=== PATIENT | male | born 1945 | race Caucasian/White ===

== ENCOUNTER 2016-11-04 00:48 | Observation (INO) | payer MEDICARE, BC ==
[2016-11-04 01:20] LABS: Absolute Neutrophil Count 2.3 /mm3 (0.0-28.0); Hematocrit 35.8 % (42.0-52.0); Hemoglobin 12.7 gm/dL (13.5-18.0); Mean Cell Volume 87.3 fl (78-100); Mean Corpuscular Hgb Conc 35.5 g/dl (32-36); Mean Platelet Volume 8.8 fl (6.0-9.5); Platelet Count 169 K/mm3 (150-450); Red Cell Distribution Width 15.2 % (11.5-14.0)
--- NOTE | 2016-11-04 01:23 | ERNOTE ---
Medical Problem HPI - General Chief Complaint: Fever Time Seen by Provider: 11/04/16 01:10 Source: patient Exam Limitations: no limitations - Immun/Allergies/Home Medications Immunizations: IMMUNIZATION HX Immunizations Up to Date Yes Allergies/Adverse Reactions: Allergies No Known Drug Allergies Allergy (Verified 11/04/16 00:57) Home Medications: HOME MEDICATIONS Capecitabine [Xeloda] 150 mg PO BID 11/04/16 [Last Taken Unknown] Capecitabine [Xeloda] 500 mg PO BID 11/04/16 [Last Taken Unknown] Dexamethasone [Decadron] 8 mg PO DAILY 11/04/16 [Last Taken Unknown] Loperamide HCl [Imodium A-D] 1 - 2 tab PO QID PRN 11/04/16 [Last Taken Unknown] Omeprazole 20 mg PO DAILY 11/04/16 [Last Taken Unknown] Ondansetron [Zofran Odt] 8 mg PO Q8H PRN 11/04/16 [Last Taken Unknown] Prochlorperazine Maleate [Compazine] 10 mg PO QID PRN 11/04/16 [Last Taken Unknown] Simethicone [Gas Relief] 160 mg PO QID PRN 11/04/16 [Last Taken Unknown] Zinc Oxide 1 appl TP PRN PRN 11/04/16 [Last Taken Unknown] - History of Present History Narrative: pt has rectal cancer and is receiving chemotherapy. his last bout of chemo ended four days ago. yesterday he started having diarrhea and he started having fever up to 101.9 tonight. He has taken nothing for fever today Review of Systems - Review of Systems Constitutional: Present: weakness EYE: Present: no symptoms reported ENT: Present: no symptoms reported Respiratory: Present: no symptoms reported Cardiology: Present: no symptoms reported Gastrointestinal/Abdominal: Present: See HPI Genitourinary: Present: no symptoms reported Musculoskeletal: Present: no symptoms reported - Patient's Past Medical History Patient History - Medical: No pertinent hx Patient History - Cardiac/Respiratory: No pertinent hx Patient History - Cancer: Rectal Patient History - Surgical Procedures: No surgical history Patient History - Other: None - Social History Living Situations: home Psych History: No pertinent hx Smoking Status: Former smoker Alcohol Use: none Drug Use: none - Immunizations Immunizations Up to Date: Yes Physical Exam - Physical Exam General Appearance: Present: wd/wn, alert, no apparent distress Ears, Nose, Throat: Present: normal ENT inspection Neck: Present: normal inspection Respiratory: Present: no respiratory distress, normal breath sounds, chest nontender, lungs clear Cardiovascular/Chest: Present: regular rate, rhythm, no murmur, normal peripheral pulses Gastrointestinal/Abdominal: Present: normal bowel sounds, nondistended, other - minimal epigastric and generalized tenderness upon deep palpation no rebound noted belly is soft Extremity Exam: Present: normal inspection, normal range of motion ED Progress - Results and Orders Patient's Lab Results:: I have reviewed the patient's lab results. - Vital Signs Patient's Vital Signs:: I have reviewed the patient's vital signs. Vital Signs: Vital Signs 11/04/16 00:53 Temperature 39.1 C H Pulse Rate 123 H Respiratory 18 Rate Blood Pressure 131/62 O2 Sat by Pulse 95 Oximetry - Progress/Reassessment Chief Complaint: Fever Plan - Plan Plan: This patient is 4 days status post chemotherapy for rectal cancer. First time he had chemotherapy for rectal cancer he experienced diarrhea and hypokalemia this was on September. He was admitted for IV hydration and monitoring and attempt at controlling his diarrhea. Today the patient presents with fever and diarrhea. His white count is 4.0. His lactate is negative. I have called at the [facility] oncology department and she suggested admission for IV hydration and attempts to control the diarrhea with replacement of the potassium. Following the suggestions I contacted our hospitalist Millie, and she accepted the patient to the observation MedSurg unit for IV hydration and monitoring. Departure - Departure Clinical Impression: Hypokalemia Diarrhea Qualifiers: Diarrhea type: unspecified type Qualified Code(s): R19.7 - Diarrhea, unspecified Disposition: [facility] Condition: Good Referrals: Eduard Winter MD [Primary Care Provider] -
[2016-11-04 01:27] LABS: Total Cells Counted 100
[2016-11-04 01:39] LABS: BUN/Creatinine Ratio 18.4 (9.0-21.6); Potassium 3.2 mmol/L (3.4-4.6)
[2016-11-04 01:40] LABS: Albumin * 2.9 gm/dl (3.4-5.0); Anion Gap 17.6 mmol/L (6.8-13.8); Bilirubin, Total 1.1 mg/dL (0.0-1.1); Ca. Corrected For Albumin 8.5 mg/dL (8.4-10.2); Calcium * 7.9 mg/dL (7.9-10.9); Carbon Dioxide 21.6 mmol/L (24-32.6); Total Protein 6.2 gm/dL (6.2-8.2)
[2016-11-04 01:46] LABS: Band 12 % (0-2.0); Lymphocyte 21 % (20-51); Monocyte 19 % (0-9); Neutrophil 48 % (42-75); Neutrophil # 1.9 K/mm3 (1.3-6.0); Platelet Estimate Normal (NORMAL)
[2016-11-04 01:47] LABS: Microcytosis 1+
[2016-11-04] MEDS ORDERED: ACETAMINOPHEN 325 MG TABLET PO ONE (01:54)
[2016-11-04] MEDS ORDERED: POTASSIUM CHLORIDE 20 MEQ in NORMAL SALINE 1,000 ML IV ONE (01:56)
[2016-11-04] MEDS ORDERED: ACETAMINOPHEN 325 MG TABLET ONE (02:00)
[2016-11-04] MEDS: POTASSIUM CHLORIDE 20 MEQ in NORMAL SALINE 1,000 ML IV SCH ×4 (02:29→22:43)
[2016-11-04] MEDS ORDERED: POTASSIUM CHLORIDE 40 MEQ/15 ML BTL PO ONE (03:43)
[2016-11-04] MEDS ORDERED: NORMAL SALINE 1,000 ML IV PRN (03:44)
--- NOTE | 2016-11-04 04:20 | HP ---
Chief Complaint - Chief Complaint Date of Service: 11/04/16 Time of Service: 03:45 Chief Complaint: " Diarrhea, Abdominal pain". Source of HPI- Pt; reliable, ERP report, pts EMR. History of Present Illness: Mr. Horton is a 71-yr-old WM pt of Dr. Eduard Winter with a PMH of: Chronic Reflux esophagitis, Hiatal Hernia & Osteoathrosis. Pt is a newly diagnosed Rectal Adenocarcinoma with mets to the LT iliac crest & femoral neck which was discovered during a colonoscopy work-up for hematochezia in August 06, 2016. He states that he just finished the second cycle of chemotherapy on October at the [facility]. Since Friday, he has had diarrhea which has been worsening and he has had up to 9-10 liquid stools per day. Then tonight he developed a fever of 102 and therefore he chose to come to the ED. He denies n/v SOB & Coughing. At the ED, Labwork was mostly unremarkable except for K level of 3.2. The CXR did not have any acute findings. ERP contacted [facility] about pt's condition and he recommended pt's admission to the hospital for IVF hydration and control of diarrhea. - Patient's Past Medical History Patient History - Medical: No pertinent hx, Other - Chronic Reflux esophagitis, Hiatal Hernia & Osteoathrosis Patient History - Cardiac/Respiratory: No pertinent hx Patient History - Cancer: Rectal Patient History - Surgical Procedures: No surgical history Patient History - Other: None - Family History Father Family History - Medical: , Other - suicide at 59 r. Mother Family History - Medical: , No pertinent hx - Social History Living Situations: home Psych History: No pertinent hx Smoking Status: Former smoker Alcohol Use: none Drug Use: none - Immunizations Immunizations Up to Date: Yes Review Of Systems (GEN) - Review of Systems Generalized/Overall Review: Present: Weakness, Chills, Fever, Malaise, Fatigue, Weight loss EENTM: Absent: Eye Pain, Blurred Vision Respiratory: Absent: Cough, Shortness of Breath Cardiac: Absent: Chest Pain, Edema, Palpitations Abdominal: Present: Abdominal Pain, Diarrhea. Absent: Nausea, Vomiting, Hematemesis Genitourinary: Absent: Burning, Itching, Urgency, Frequency Musculoskeletal: Absent: Joint Pain, Back Pain Neurological: Present: Depressed, Weakness. Absent: Headache, Anxiety Skin: Present: Dryness. Absent: Lesions, Bruising Endocrine: Present: Intolerance to Cold. Absent: Intolerance to Heat, Increased Hunger, Flushing Misc: All systems neg except as marked Allergies/Adverse Reactions: Allergies Allergy/AdvReac Type Severity Reaction Status Date / Time No Known Drug Allergies Allergy Verified 11/04/16 00:57 Home Medications: HOME MEDICATIONS Loperamide HCl [Imodium A-D] 1 - 2 tab PO QID PRN 11/04/16 [Last Taken 11/03/16] Omeprazole 20 mg PO DAILY 11/04/16 [Last Taken 11/03/16] Ondansetron [Zofran Odt] 8 mg PO Q8H PRN 11/04/16 [Last Taken 11/03/16] Prochlorperazine Maleate [Compazine] 10 mg PO QID PRN 11/04/16 [Last Taken 11/03] Simethicone [Gas Relief] 160 mg PO QID PRN 11/04/16 [Last Taken 11/03/16] Exam - Exam Vital Signs: Vital Signs - Last Taken Temp 37.9 C H 11/04/16 03:15 Pulse 101 H 11/04/16 02:32 Resp 18 11/04/16 02:32 BP 116/64 11/04/16 02:32 Pulse Ox 96 11/04/16 02:32 Constitutional: Present: Alert, Oriented x3, Cooperative, No distress ENT Exam: Present: normal ENT inspection, hard of hearing, dry mucous membranes Eye Exam: bilateral eye: normal inspection, PERRL Neck: Present: non-tender, full range of motion, supple Back Exam: Present: normal inspection, no CVA tenderness Breasts: Present: Exam deferred Respiratory: Present: lungs clear, no accessory muscle use, No wheezing Cardiovascular/Chest: Present: normal peripheral pulses, regular rate, rhythm, no chest tenderness, no murmur Abdomen: Present: Normal bowel sounds, soft, tender - RLQ & LLQ /Rectal: Present: Exam deferred Extremity: Present: non-tender, normal inspection, no pedal edema Skin Exam: Present: warm/dry, no cyanosis Neurologic: Present: no motor/sensory deficits, alert, oriented x 3 Appearance: Present: appropriate appearance, appropriate insight Eye contact: Present: cooperative, good eye contact, normal speech Thoughts: Present: normal thought pattern, no apparent hallucination Diagnostic Studies: Laboratory Results WBC 4.0 K/mm3 (4.0-10.5) 11/04/16 01:10 RBC 4.10 M/mm3 (4.7-6.0) L 11/04/16 01:10 Hgb 12.7 gm/dL (13.5-18.0) L 11/04/16 01:10 Hct 35.8 % (42.0-52.0) L 11/04/16 01:10 MCV 87.3 fl (78-100) 11/04/16 01:10 MCH 31.0 pg (27-31) 11/04/16 01:10 MCHC 35.5 g/dl (32-36) 11/04/16 01:10 RDW 15.2 % (11.5-14.0) H 11/04/16 01:10 Plt Count 169 K/mm3 (150-450) 11/04/16 01:10 MPV 8.8 fl (6.0-9.5) 11/04/16 01:10 Neutrophils % (Manual) 48 % (42-75) 11/04/16 01:10 Band Neuts % (Manual) 12 % (0-2.0) H 11/04/16 01:10 Lymphocytes % (Manual) 21 % (20-51) 11/04/16 01:10 Monocytes % (Manual) 19 % (0-9) H 11/04/16 01:10 Neutrophils # (Manual) 1.9 K/mm3 (1.3-6.0) 11/04/16 01:10 Absolute Neutrophils 2.3 /mm3 (0.0-28.0) 11/04/16 01:10 Lymphocytes # (Manual) 0.8 k/mm3 (1.5-3.5) L 11/04/16 01:10 Monocytes # (Manual) 0.8 k/mm3 (0.0-1.0) 11/04/16 01:10 Platelet Estimate Normal (NORMAL) 11/04/16 01:10 Microcytosis 1+ 11/04/16 01:10 Sodium 137 mmol/L (132-142) 11/04/16 01:10 Plasma Sodium 137 mmol/L (130-142) 11/04/16 01:10 Potassium 3.2 mmol/L (3.4-4.6) L D 11/04/16 01:10 Chloride 101 mmol/L (97-106) 11/04/16 01:10 Carbon Dioxide 21.6 mmol/L (24-32.6) L 11/04/16 01:10 Anion Gap 17.6 mmol/L (6.8-13.8) H 11/04/16 01:10 BUN 19 mg/dL (6-23) 11/04/16 01:10 Creatinine 1.03 mg/dL (0.4-1.4) 11/04/16 01:10 Est GFR (Non-Af Amer) 76 mL/min (60-130) 11/04/16 01:10 BUN/Creatinine Ratio 18.4 (9.0-21.6) 11/04/16 01:10 Random Glucose 112 mg/dL (70-110) H 11/04/16 01:10 Lactic Acid, Venous 1.3 mmol/L (0.4-1.9) 11/04/16 01:10 Calcium 7.9 mg/dL (7.9-10.9) 11/04/16 01:10 Calcium Adj for Albumin 8.5 mg/dL (8.4-10.2) 11/04/16 01:10 Total Bilirubin 1.1 mg/dL (0.0-1.1) 11/04/16 01:10 AST 34 U/L (0-48) 11/04/16 01:10 ALT 50 U/L (19-67) 11/04/16 01:10 Alkaline Phosphatase 101 U/L (50-170) 11/04/16 01:10 C-Reactive Prot, Quant 4.4 mg/dL (0.0-0.9) H 11/04/16 01:10 Total Protein 6.2 gm/dL (6.2-8.2) 11/04/16 01:10 Albumin 2.9 gm/dl (3.4-5.0) L 11/04/16 01:10 Procalcitonin 0.30 ng/mL (0.05-0.50) 11/04/16 01:10 Assessment/Plan - Assessment/Plan (1) Diarrhea Assessment: Pt reports having 9-10 stool per day since Friday following chemotherapy on 10/31. He has a likelihood of having C-dificille as a result of chemotherapy alone. Will check for C-diff. Will provide supportive cares with IVF & Monitor electrolytes. May consider antimotility agents e.g loperamide if C -diff results are negative. Problem: Acute (2) Dehydration Assessment: Due to several episodes of diarrhea, will benefit being admitted under observation to maintain hydration and for electrolyte repletion. Problem: Acute (3) Hypokalemia Assessment: Oral replenishing given. BMP in am. Problem: Acute (4) Distal rectal cancer Assessment: Follows up with the [facility] and has an upcoming appt next week to determine future chemotherapy cycles. Problem: Chronic
[2016-11-04] MEDS ORDERED: PROCHLORPERAZINE MALEATE 10 MG TABLET PO PRN (05:14)
[2016-11-04] MEDS ORDERED: SIMETHICONE 80 MG TAB.CHEW PO PRN (05:14)
[2016-11-04] MEDS ORDERED: ONDANSETRON 8 MG TAB.RAPDIS PO PRN (05:14)
[2016-11-04] MEDS ORDERED: ACETAMINOPHEN 325 MG TABLET PO PRN (05:19)
[2016-11-04 06:02] LABS: Anion Gap 14.5 mmol/L (6.8-13.8); Calcium * 7.6 mg/dL (7.9-10.9); Carbon Dioxide 22.8 mmol/L (24-32.6); Estimated Creat Clear 74.3; Potassium 3.3 mmol/L (3.4-4.6)
[2016-11-04] MEDS ORDERED: PANTOPRAZOLE SODIUM 20 MG TABLET.DR PO SCH (07:00)
[2016-11-04] MEDS ORDERED: OMEPRAZOLE 20 MG CAPSULE.SA PO SCH (07:00)
[2016-11-04] MEDS: CIPROFLOXACIN IN 5 % DEXTROSE 400 MG/200 ML BAG IV SCH ×2 (08:06→18:46)
[2016-11-04] MEDS: metroNIDAZOLE/SODIUM CHLORIDE 500 MG/100 ML BAG IV SCH ×2 (09:39→16:39)
[2016-11-04] MEDS ORDERED: DIPHENOXYLATE HCL/ATROP SULF 2.5 MG TABLET PO PRN (18:35)
--- NOTE | 2016-11-04 18:35 | PN ---
Progess Note - Interim Narrative: 11/04/16 18:31 Spoke with pt's at approx 1800 tonight. she is concerned that [facility] oncology is not in the loop about patient's admission. I called [facility] consult line at 1820 and spoke with oncall oncologist Dr Rosales, all medications, labs and patient symptoms were reviewed. He recommended lomotil for any stools since pt's cdiff was negative. otherwise. Dr. Rosales said the cipro/flagyl combination was fine and to continue those medications and replace eletrolytes as needed. Dr Rosales believes that diarrhea is likely due to the current chemo drug that the patient just received. Patient has a follow up with oncology at [facility] on 11/07/16. Molly Nelson.
[2016-11-05] MEDS: metroNIDAZOLE/SODIUM CHLORIDE 500 MG/100 ML BAG IV SCH (01:57)
[2016-11-05] MEDS: POTASSIUM CHLORIDE 20 MEQ in NORMAL SALINE 1,000 ML IV SCH (06:23)
--- NOTE | 2016-11-05 06:45 | DS ---
(1) Dehydration Problem: Acute (2) Diarrhea Problem: Acute Qualifiers: Diarrhea type: unspecified type Qualified Code(s): R19.7 - Diarrhea, unspecified (3) Hypokalemia Problem: Acute (4) Distal rectal cancer Problem: Chronic (5) Bandemia Problem: Acute Description of Stay: Pt. admitted for severe diarrhea with fevers and bandemia (12%) and elevated CRP (4.4). He also had hypokalemia (3.2-3.3) probably due to the diarrhea. He was given IVF and KCL for his hypokalemia and allowed to take PO as desired, which was some but not a lot as he stated he didn't have much of an appetite. Due to the fevers and bandemia and diarrhea stool was checked for c. diff, which was negative, but still felt it was best to start iv cipro and flagyl, which oncology concurred. Blood cultures were negative and stool culture was still pending at time of discharge, but pt. did improve rapidly so will continue cipro and flagyl po until his f/u on with oncology. It is very possible that all his sx were simply SE from the chemo, but due to his cancer and being on chemo, he is also at high risk for infections. His abdominal exam at time of admit had a fullness and significant moderate- severe tenderness in RLQ with some guarding but no rebound and he had very hyperactive BS. At time of D/C his BS had normalized, the fullness in the RLQ was greatly diminished and he had mild tenderness to palpation. He was feeling and looked much better at time of discharge (having looked quite ill on admission). Procedures Performed: none Discharge Disposition: Home self care Disposition: Home self-care Condition: Good Discharge Activity: Activity as tolerated Discharge Diet: General/regular food Referrals: Eduard Winter MD [Primary Care Provider] - (as needed with me) Additional Patient Instructions (free text): Fax records from this hospital stay to patient's Oncologist (Dr Osborn) at [facility]. Fax number- Keep appt. with oncology at [facility] on 11-07-16 Prescriptions (Any new or edited meds): Ciprofloxacin in 5 % Dextrose [Cipro] 500 mg PO Q12H #18 tab Diphenoxylate HCl/Atrop Sulf [Lomotil] 2.5 mg PO QID PRN #16 tablet PRN Reason: Diarrhea metroNIDAZOLE/SODIUM CHLORIDE [Flagyl] 500 mg PO Q8H #27 tab Complete Home Medications List: Complete Home Medication List: Loperamide HCl [Imodium A-D] 1 - 2 tab PO QID PRN 11/04/16 Omeprazole 20 mg PO DAILY 11/04/16 Ondansetron [Zofran Odt] 8 mg PO Q8H PRN 11/04/16 Prochlorperazine Maleate [Compazine] 10 mg PO QID PRN 11/04/16 Simethicone [Gas Relief] 160 mg PO QID PRN 11/04/16 Ciprofloxacin in 5 % Dextrose [Cipro] 500 mg PO Q12H #18 tab 11/05/16 Diphenoxylate HCl/Atrop Sulf [Lomotil] 2.5 mg PO QID PRN #16 tablet 11/05/16 metroNIDAZOLE/SODIUM CHLORIDE [Flagyl] 500 mg PO Q8H #27 tab 11/05/16
[2016-11-05 06:52] LABS: Albumin * 2.1 gm/dl (3.4-5.0); Anion Gap 14.4 mmol/L (6.8-13.8); BUN/Creatinine Ratio 13.3 (9.0-21.6); Bilirubin, Total 0.8 mg/dL (0.0-1.1); CRP 6.5 mg/dL (0.0-0.9); Ca. Corrected For Albumin 8.8 mg/dL (8.4-10.2); Calcium * 7.6 mg/dL (7.9-10.9); Potassium 3.4 mmol/L (3.4-4.6); Total Protein 4.7 gm/dL (6.2-8.2)
[2016-11-05 07:16] VITALS: BP 107/64
== END 2016-11-05 08:30 | disposition home or self-care (01) ==
LOC: ER 00:48 → MS 02:44
PROVIDERS: ADMIT Nurse Practitioner; ATTEND Family Medicine
DX: E86.0 Dehydration (principal); E87.6 Hypokalemia; C20 Malignant neoplasm of rectum; R19.7 Diarrhea, unspecified; K21.0 Gastro-esophageal reflux disease with esophagitis; M19.90 Unspecified osteoarthritis, unspecified site; Z87.891 Personal history of nicotine dependence
CPT/HCPCS: 36415; 71020; 80048; 80053; 83605; 84145; 85025; 85048; 86140; 87040; 87045; 87046; 87493; 96365; 96366; 96367; 99284; G0378